=== PATIENT | male | born 1950 | race American Indian/Alaskan Native ===

== ENCOUNTER 2020-09-08 08:00 | Outpatient (CLI) | payer OTHER ==
[2020-09-08 10:28] LABS: Hematocrit 33.2 % (35.5-45.6); Hemoglobin 10.6 gm/dl (11.8-15.2); Mean Corpuscular HGB Conc 32 % (32-34); Mean Corpuscular Volume 87 fl (84-94); Platelet Count 188 K/mm3 (140-440); Red Blood Count 3.83 M/mm3 (3.65-5.03); Red Cell Distribution Width 15.9 % (13.2-15.2)
[2020-09-08 10:37] VITALS: BP 154/99
[2020-09-08 10:53] LABS: Alanine Aminotransferase 13 units/L (7-56); Albumin 3.1 g/dL (3.9-5); BUN/Creatinine Ratio 19; Blood Urea Nitrogen 45 mg/dL (9-20); Calcium 8.4 mg/dL (8.4-10.2); Hemolysis Index 1
--- NOTE | 2020-09-08 15:16 | Anesthesia Consultation ---
Anesthesia Consult and Med Hx Date of service: 09/13/20 - Airway Anesthetic Teeth Evaluation: Dentures ROM Head & Neck: Adequate Mental/Hyoid Distance: Adequate Mallampati Class: Class III Intubation Access Assessment: Possibly Difficult - Pulmonary Exam CTA: No (expiratory wheezing which cleared with cough) - Cardiac Exam Cardiac Exam: RRR - Pre-Operative Health Status ASA Pre-Surgery Classification: ASA3 Proposed Anesthetic Plan: General - Pulmonary Hx Smoking: Yes (quit 1988) COPD: Yes (daily maintenance inhalers; instructed to use inhalers preop) Home Oxygen Therapy: No Hx Sleep Apnea: Yes (compliant with CPAP) - Cardiovascular System Hx Hypertension: Yes Hx Heart Attack/AMI: No Hx Percutaneous Transluminal Coronary Angioplasty (PTCA): No Hx Cardia Arrhythmia: No - Central Nervous System CVA: No Hx Back Pain: Yes - Endocrine Hx Renal Disease: Yes (denies hx renal disease but renal markers abnormal on pre-assessment labs) Hx Non-Insulin Dependent Diabetes: Yes (diet controlled) Hx Thyroid Disease: No - Hematic Hx Anemia: Yes - Other Systems Hx Alcohol Use: Yes (remote hx EtOH abuse; none in recent years) Hx Cancer: Yes (prostate ca) Hx Obesity: Yes (BMI 38) - Additional Comments Anesthesia Medical History Comments: No hx anesthetic complications. Hx SLE; no steroid use in many years. Patient had TTE as part of preop cardiac evaluation today. Results not yet available. He has stress test scheduled for 09/09/20. Will obtain results and message clerk recs prior to surgery. Discussed with patient the risk of post op pulmonary complications, including need for post op ventilation, given COPD hx. Patient denies hx renal disease however labs collected in preassessment show elevated K, BUN, and creatinine. Surgeon's office has been notified.
[2020-09-13] MEDS ORDERED: MIDAZOLAM 2 MG/2 ML INJ IV NR (06:00)
[2020-09-13] MEDS ORDERED: ALBUTEROL 2.5 MG/3 ML NEBU IH PRN (06:00)
[2020-09-13] MEDS ORDERED: SODIUM CHLORIDE 0.9% 1000 ML 1,000 ML IV SCH (06:00)
[2020-09-13] MEDS ORDERED: ACETAMINOPHEN 500 MG TAB PO SCH (06:00)
[2020-09-13] MEDS ORDERED: GABAPENTIN 300 MG CAP PO NR (06:00)
== END 2020-09-08 10:00 | disposition home or self-care (01) ==
LOC: LAB 08:00 → EDSTATUS 09-13 07:30
PROVIDERS: ATTEND Urology
DX: Z20.822 Contact with and (suspected) exposure to COVID-19 (principal); C61 Malignant neoplasm of prostate
CPT/HCPCS: 36415; 80053; 85027; U0003

== ENCOUNTER 2020-10-12 09:00 | Outpatient (CLI) | payer OTHER ==
[2020-10-12 10:19] LABS: Hematocrit 31.9 % (35.5-45.6); Hemoglobin 10.1 gm/dl (11.8-15.2); Mean Corpuscular HGB Conc 32 % (32-34); Mean Corpuscular Volume 87 fl (84-94); Platelet Count 185 K/mm3 (140-440); Red Blood Count 3.67 M/mm3 (3.65-5.03); Red Cell Distribution Width 16.1 % (13.2-15.2)
[2020-10-12 10:55] LABS: Alanine Aminotransferase 14 units/L (7-56); BUN/Creatinine Ratio 17; Blood Urea Nitrogen 51 mg/dL (9-20); Calcium 8.8 mg/dL (8.4-10.2); Hemolysis Index 1
[2020-10-12 11:17] VITALS: BP 154/89
== END 2020-10-12 12:00 | disposition home or self-care (01) ==
LOC: LAB 09:00 → EDSTATUS 10-18 07:30
PROVIDERS: ATTEND Urology
DX: C61 Malignant neoplasm of prostate (principal); Z20.822 Contact with and (suspected) exposure to COVID-19
CPT/HCPCS: 36415; 80053; 85027; U0003

== ENCOUNTER 2020-10-15 15:02 | Outpatient (CLI) | payer OTHER ==
[2020-10-15 15:53] LABS: Bilirubin,Urine NEG (Negative); Blood,Urine SM (Negative); Color,Urine Straw (Yellow); Hyaline Casts,Urine 6 /LPF; Mucus,Urine FEW /HPF; Urobilinogen,Urine < 2.0 mg/dL (<2.0); WBC,Urine < 1.0 /HPF (0.0-6.0)
[2020-10-15 15:58] LABS: Protein,Urine >500 mg/dL (Negative)
[2020-10-15 16:02] LABS: Basophils % (Auto) 0.5 % (0.0-1.8); Eosinophils # (Auto) 0.3 K/mm3 (0.0-0.4); Hematocrit 33.6 % (35.5-45.6); Hemoglobin 10.7 gm/dl (11.8-15.2); Lymphocytes # (Auto) 1.3 K/mm3 (1.2-5.4); Lymphocytes % (Auto) 22.7 % (13.4-35.0); Mean Corpuscular HGB Conc 32 % (32-34); Mean Corpuscular Volume 87 fl (84-94); Monocytes # (Auto) 0.5 K/mm3 (0.0-0.8); Monocytes % (Auto) 8.8 % (0.0-7.3); Platelet Count 193 K/mm3 (140-440); Red Blood Count 3.87 M/mm3 (3.65-5.03); Red Cell Distribution Width 16.1 % (13.2-15.2)
[2020-10-15 16:05] LABS: Albumin 3.2 g/dL (3.9-5)
== END 2020-10-15 15:03 | disposition home or self-care (01) ==
LOC: LAB 15:02
PROVIDERS: ATTEND Internal Medicine Nephrology
DX: R60.9 Edema, unspecified (principal); D64.9 Anemia, unspecified; R80.9 Proteinuria, unspecified; E78.5 Hyperlipidemia, unspecified; I50.9 Heart failure, unspecified; M12.9 Arthropathy, unspecified; E87.5 Hyperkalemia; E79.0 Hyperuricemia without signs of inflammatory arthritis and tophaceous disease; M32.9 Systemic lupus erythematosus, unspecified
CPT/HCPCS: 36415; 80048; 81001; 82040; 82570; 82607; 82747; 83550; 84100; 84160; 85025; 86021; 86038; 86334; 86706; 87517; 89050